=== PATIENT | male | born 1980 | race Caucasian/White ===

== ENCOUNTER 2023-02-22 03:46 | Emergency (ER) | payer BC ==
[~2023-02-22] VITALS: Ht 190.5 cm; Wt 142.0 kg
[2023-02-22 04:12] VITALS: BP 137/85; PULSE 67; RESP 16; TEMP 97.9; O2SAT 97
[2023-02-22 04:39] LABS: STREP A SCREEN POSITIVE (Neg)
[2023-02-22] MEDS ORDERED: CLIN150C2 PO (04:52)
== END 2023-02-22 05:29 | disposition home or self-care (01) ==
LOC: ER 03:47
DX: J02.0 Streptococcal pharyngitis (principal); B95.0 Streptococcus, group A, as the cause of diseases classified elsewhere; J45.909 Unspecified asthma, uncomplicated; Z88.0 Allergy status to penicillin; Z79.899 Other long term (current) drug therapy
CPT/HCPCS: 87880; 99283